=== PATIENT | male | born 1985 | race African-American/Black ===

== ENCOUNTER 2021-05-03 07:10 | Emergency (ER) | payer SELFPAY ==
[~2021-05-03] VITALS: Ht 170.2 cm; Wt 68.0 kg
[2021-05-03 07:25] VITALS: BP 154/81
--- NOTE | 2021-05-03 07:29 | NUR ---
ermd assessing pt in triage at this time
[2021-05-03] MEDS ORDERED: ACETAMINOPHEN 325 MG TAB PO ONE (07:35)
[2021-05-03] MEDS ORDERED: NAPR-1704 PO (08:33)
[2021-05-03] MEDS ORDERED: ACETAMINOPHEN 325 MG TAB ONE (08:41)
--- NOTE | 2021-05-03 08:45 | NUR ---
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 pt states injury happened 2 hours ago. denies cough, sore throat, cp or sob. pt has limited rom on right lower extremity, some swelling at site. skin is warm/intact. pmh: denies nka med: denies
--- NOTE | 2021-05-03 08:49 | NUR ---
PT PLACED IN RIGHT STIRRUP SPLINT, CMS WNL BEFORE AND AFTER
[2021-05-03 08:52] VITALS: BP 150/75
--- NOTE | 2021-05-03 08:54 | NUR ---
Patient discharged with v/s stable. Written and verbal after care instructions given and explained. Patient alert, oriented and verbalized understanding of instructions. Ambulatory with to car. All questions addressed prior to discharge. ID band removed. Patient advised to follow up with PMD. Rx of NAPROXEN given. Patient educated on indication of medication including possible reaction and side effects. Opportunity to ask questions provided and answered.
[2021-05-04] MEDS ORDERED: IBUP-2213 PO (18:03)
== END 2021-05-03 08:54 | disposition home or self-care (01) ==
LOC: MED 07:10
DX: S93.401A Sprain of unspecified ligament of right ankle, initial encounter (principal); X50.0XXA Overexertion from strenuous movement or load, initial encounter; Y93.89 Activity, other specified; Y92.89 Other specified places as the place of occurrence of the external cause; Y99.8 Other external cause status
CPT/HCPCS: 29515; 73610; 73630; 99284

== ENCOUNTER 2021-05-04 16:19 | Emergency (ER) | payer SELFPAY ==
[~2021-05-04] VITALS: Ht 170.2 cm; Wt 67.6 kg
[~2021-05-04 16:19] MED LIST: NAPR-1704 PO
[2021-05-04 16:50] VITALS: BP 159/95
[2021-05-04] MEDS ORDERED: IBUP-2213 PO (18:03)
[2021-05-04 18:17] VITALS: BP 159/95
--- NOTE | 2021-05-04 18:17 | NUR ---
NO NURSING INTERVENTIONS PROVIDED
--- NOTE | 2021-05-04 18:18 | NUR ---
Patient discharged with v/s stable. Written and verbal after care instructions ABOUT ANKLE PAIN given and explained. Patient alert, oriented and verbalized understanding of instructions. Ambulatory with steady gait. All questions addressed prior to discharge. ID band removed. Patient advised to follow up with PMD. Rx of IBUPROFEN 600MG given. Patient educated on indication of medication including possible reaction and side effects. Opportunity to ask questions provided and answered.
== END 2021-05-04 18:18 | disposition home or self-care (01) ==
LOC: MED 16:19
DX: S93.401A Sprain of unspecified ligament of right ankle, initial encounter (principal); X50.0XXA Overexertion from strenuous movement or load, initial encounter; Y93.89 Activity, other specified; Y92.89 Other specified places as the place of occurrence of the external cause; Y99.8 Other external cause status
CPT/HCPCS: 73610; 99283

== ENCOUNTER 2021-05-05 07:45 | Emergency (ER) | payer SELFPAY ==
[~2021-05-05] VITALS: Ht 170.2 cm; Wt 69.9 kg
[~2021-05-05 07:45] MED LIST changes: +IBUP-2213 PO
[2021-05-05 08:04] VITALS: BP 146/90
--- NOTE | 2021-05-05 08:04 | NUR ---
ermd in triage room assessing pt
--- NOTE | 2021-05-05 08:06 | NUR ---
35 y/o male c/o runny nose that he states started 45 minutes ago. not c/o of any other symptoms. denies anyone else sick around him or possible covid exposure. denies n/v/d. denies sob, cough, cp, fever, chills or sore throat. pt states pain is 0/10 at this time. skin is pink/warm/dry. bl lung bases clear, even and unlabored breathing. heart rate is even and normal. denies hematuria, dysuria, constipation. ermd made aware of pt status. pmh: denies nka med: denies
--- NOTE | 2021-05-05 08:07 | NUR ---
novel swabbed at this time
--- NOTE | 2021-05-05 08:35 | NUR ---
Patient discharged with v/s stable. Written and verbal after care instructions ABOUT VIRAL ILLNESS given and explained. Patient verbalized understanding. Ambulatory with steady gait. All questions addressed prior to discharge. Advised to follow up with PMD.
[2021-05-06] MEDS ORDERED: ACET-2619 PO (07:50)
== END 2021-05-05 08:35 | disposition home or self-care (01) ==
LOC: MED 07:45
DX: J34.89 Other specified disorders of nose and nasal sinuses (principal); Z20.822 Contact with and (suspected) exposure to COVID-19; Z79.899 Other long term (current) drug therapy
CPT/HCPCS: 99283; U0003

== ENCOUNTER 2021-05-06 06:55 | Emergency (ER) | payer SELFPAY ==
[~2021-05-06] VITALS: Ht 170.2 cm; Wt 68.7 kg
[2021-05-06 07:40] VITALS: BP 140/76
[2021-05-06] MEDS ORDERED: ACET-2619 PO (07:50)
--- NOTE | 2021-05-06 08:03 | NUR ---
PT SEEN BY DR VITALE, NO NURSING INTERVENTIONS PROVIDED
--- NOTE | 2021-05-06 08:04 | NUR ---
Patient discharged with v/s stable. Written and verbal after care instructions ABOUT UPPER RESPIRATORY INFECTIONS given and explained. Patient alert, oriented and verbalized understanding of instructions. Ambulatory with steady gait. All questions addressed prior to discharge. ID band removed. Patient advised to follow up with PMD. Rx of TYLENOL given. Patient educated on indication of medication including possible reaction and side effects. Opportunity to ask questions provided and answered.
== END 2021-05-06 08:04 | disposition home or self-care (01) ==
LOC: MED 06:55
DX: J02.9 Acute pharyngitis, unspecified (principal); Z20.822 Contact with and (suspected) exposure to COVID-19; Z79.899 Other long term (current) drug therapy
CPT/HCPCS: 99282

== ENCOUNTER 2021-05-07 05:19 | Emergency (ER) | payer SELFPAY ==
[~2021-05-07] VITALS: Ht 172.7 cm; Wt 67.6 kg
[~2021-05-07 05:19] MED LIST changes: +ACET-2619 PO
[2021-05-07 05:35] VITALS: BP 144/77
[2021-05-07] MEDS ORDERED: IBUPROFEN 800 MG TAB PO ONE (05:35)
--- NOTE | 2021-05-07 05:38 | NUR ---
TO LOBBY A/W BED AMBULATORY
--- NOTE | 2021-05-07 05:40 | NUR ---
SEEN AND EXAMINED BY DUNG
[2021-05-07 06:33] VITALS: BP 121/80
--- NOTE | 2021-05-07 06:33 | NUR ---
Patient discharged with v/s stable. Written and verbal after care instructions given and explained. Patient verbalized understanding. Ambulatory with steady gait. All questions addressed prior to discharge. Advised to follow up with PMD.
== END 2021-05-07 06:33 | disposition home or self-care (01) ==
LOC: MED 05:19
DX: M79.631 Pain in right forearm (principal); Z79.899 Other long term (current) drug therapy; W19.XXXA Unspecified fall, initial encounter; Y93.89 Activity, other specified; Y92.89 Other specified places as the place of occurrence of the external cause; Y99.8 Other external cause status
CPT/HCPCS: 73090; 73130; 99284

== ENCOUNTER 2021-05-16 05:04 | Emergency (ER) | payer SELFPAY ==
[~2021-05-16] VITALS: Ht 172.7 cm; Wt 66.2 kg
[2021-05-16 05:18] VITALS: BP 126/79
--- NOTE | 2021-05-16 05:25 | NUR ---
Dr. Hollins examining patient.
--- NOTE | 2021-05-16 05:28 | NUR ---
35 Y/O MALE BIB SELF PRESENTS TO ED WITH HEADACHE X20 MINUTES. PT STATES NO SEIZURE, LOC, OR TRAUMA. DENIES N/V/D; SKIN IS PINK/WARM/DRY; AAOX4 WITH EVEN AND STEADY GAIT; LUNGS CLEAR BL; HR EVEN AND REGULAR; PT DENIES ANY FEVER, CP, SOB, OR COUGH AT THIS TIME; PATIENT STATES PAIN OF 9/10 AT THIS TIME;DENIES SORE THROAT, SENSITIVITY TO LIGH OR BLURRED VISION; VSS. DENIES PMH NKA
[2021-05-16] MEDS ORDERED: diphenhydrAMINE 50 MG/ML VIAL IM ONE (05:30)
[2021-05-16] MEDS ORDERED: KETOROLAC 60 MG/2 ML VIAL IM ONE (05:30)
[2021-05-16] MEDS ORDERED: PROCHLORPERAZINE 10 MG/2 ML VIAL IM ONE (05:30)
[2021-05-16 05:57] VITALS: BP 126/79
--- NOTE | 2021-05-16 05:59 | NUR ---
Patient discharged with v/s stable. Written and verbal after care instructions given and explained. Patient verbalized understanding. Ambulatory with steady gait. All questions addressed prior to discharge. Advised to follow up with PMD. STEADY GAIT, VSS, UNLABORED BREATHING, A/OX4, AND CALM DEMEANOR.
== END 2021-05-16 05:59 | disposition home or self-care (01) ==
LOC: MED 05:04
DX: G43.909 Migraine, unspecified, not intractable, without status migrainosus (principal)
CPT/HCPCS: 96372; 99284; J0780; J1200; J1885

== ENCOUNTER 2021-05-21 20:45 | Emergency (ER) | payer SELFPAY ==
[~2021-05-21] VITALS: Ht 170.2 cm; Wt 65.8 kg
[2021-05-21 20:45] VITALS: BP 167/103
--- NOTE | 2021-05-21 20:45 | NUR ---
KORI CARRENO TAKEN TO CHAIR E
--- NOTE | 2021-05-21 21:07 | NUR ---
PATIENT BIB [employer]. PATIENT EXAMINED BY DR. VITALE. PATIENT MEDICALLY CLEARED AND RELEASED IN CUSTODY IN STABLE CONDITION. ORIGINAL PRE-BOOK FORM GIVEN TO OFFICER SHAN, #429.
== END 2021-05-21 21:07 ==
LOC: MED 20:45
DX: R00.0 Tachycardia, unspecified (principal); Z02.89 Encounter for other administrative examinations
CPT/HCPCS: 99283

== ENCOUNTER 2021-05-30 10:17 | Emergency (ER) | payer SELFPAY ==
[~2021-05-30] VITALS: Ht 172.7 cm; Wt 67.1 kg
[2021-05-30 10:32] VITALS: BP 130/79
--- NOTE | 2021-05-30 10:35 | NUR ---
PT SENT TO LOBBY
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
[2021-05-30] MEDS ORDERED: IBUPROFEN 600 MG TAB PO ONE (11:10)
[2021-05-30] MEDS ORDERED: IBUP-1842 PO (11:32)
[2021-05-30 12:40] VITALS: BP 130/79
--- NOTE | 2021-05-30 12:40 | NUR ---
Patient discharged with v/s stable. Written and verbal after care instructions ABOUT HAND CONTUSION, WRIST FRACTURE given and explained. Patient alert, oriented and verbalized understanding of instructions. Ambulatory with steady gait. All questions addressed prior to discharge. ID band removed. Patient advised to follow up with PMD. Rx of MOTRIN given. Patient educated on indication of medication including possible reaction and side effects. Opportunity to ask questions provided and answered.
== END 2021-05-30 12:40 | disposition home or self-care (01) ==
LOC: MED 10:17
DX: S52.501A Unspecified fracture of the lower end of right radius, initial encounter for closed fracture (principal); Z79.899 Other long term (current) drug therapy; X58.XXXA Exposure to other specified factors, initial encounter; Y93.89 Activity, other specified; Y92.89 Other specified places as the place of occurrence of the external cause; Y99.8 Other external cause status
CPT/HCPCS: 73110; 73130; 99284

== ENCOUNTER 2021-06-14 05:39 | Emergency (ER) | payer SELFPAY ==
[~2021-06-14] VITALS: Ht 172.7 cm; Wt 65.8 kg
[~2021-06-14 05:39] MED LIST changes: +IBUP-1842 PO
[2021-06-14 05:45] VITALS: BP 127/79
--- NOTE | 2021-06-14 05:45 | NUR ---
TO [facility] AMBULATORY
--- NOTE | 2021-06-14 06:05 | NUR ---
SEEN AND EXAMINED BY DUNG
--- NOTE | 2021-06-14 07:10 | NUR ---
RECEIVED REPORT FROM HAYDEE GOFF.
[2021-06-14] MEDS ORDERED: NAPR-1704 PO (07:55)
--- NOTE | 2021-06-14 08:00 | NUR ---
PT PLACED IN RIGHT WRIST VELCRO SPLINT AND RIGHT SLING. CMS WNL BEFORE AND AFTER.
[2021-06-14 08:02] VITALS: BP 117/68
== END 2021-06-14 08:00 | disposition home or self-care (01) ==
LOC: MED 05:39
DX: S52.501A Unspecified fracture of the lower end of right radius, initial encounter for closed fracture (principal); S52.591A Other fractures of lower end of right radius, initial encounter for closed fracture; Y93.89 Activity, other specified; Y92.89 Other specified places as the place of occurrence of the external cause; Y99.8 Other external cause status
CPT/HCPCS: 73110; 73200; 99284

== ENCOUNTER 2021-06-29 19:49 | Emergency (ER) | payer SELFPAY ==
[~2021-06-29] VITALS: Ht 170.2 cm; Wt 64.4 kg
[2021-06-29 20:29] VITALS: BP 121/67
--- NOTE | 2021-06-29 20:35 | NUR ---
TO LOBBY FOLLOWING TRIAGE
[2021-06-29] MEDS ORDERED: FLUORESCEIN OPTH STRIP 1 MG OP ONE (21:15)
[2021-06-29] MEDS ORDERED: TETRACAINE HCL/PF 0.5% OPTH 4 ML BTL OP ONE (21:15)
--- NOTE | 2021-06-29 21:24 | NUR ---
PT TAKEN TO BED 3
--- NOTE | 2021-06-29 21:42 | NUR ---
Dr. Carvalho examining patient.
--- NOTE | 2021-06-29 21:50 | NUR ---
2144 ASSUMED PATIENT CARE, HERE FOR EYE IRRITATION/DRYNESS. EYE DROPS GIVEN BY DR. TRIVEDI.
--- NOTE | 2021-06-29 22:27 | NUR ---
Patient cleared for dc with Dr. Carvalho.
[2021-06-30] MEDS ORDERED: IBUP-1842 PO (19:04)
== END 2021-06-29 22:27 | disposition home or self-care (01) ==
LOC: MED 19:49
DX: H57.11 Ocular pain, right eye (principal); Z79.899 Other long term (current) drug therapy
CPT/HCPCS: 99283

== ENCOUNTER 2021-06-30 17:47 | Emergency (ER) | payer SELFPAY ==
[~2021-06-30] VITALS: Ht 170.2 cm; Wt 63.5 kg
[2021-06-30 18:14] VITALS: BP 106/61
[2021-06-30] MEDS ORDERED: IBUP-1842 PO (19:04)
[2021-06-30 19:15] VITALS: BP 106/61
== END 2021-06-30 19:15 | disposition home or self-care (01) ==
LOC: MED 17:47
DX: S60.221A Contusion of right hand, initial encounter (principal); Z79.899 Other long term (current) drug therapy; X50.0XXA Overexertion from strenuous movement or load, initial encounter; Y93.89 Activity, other specified; Y92.89 Other specified places as the place of occurrence of the external cause; Y99.8 Other external cause status
CPT/HCPCS: 73130; 99283

== ENCOUNTER 2021-08-09 08:09 | Emergency (ER) | payer SELFPAY ==
[~2021-08-09] VITALS: Ht 172.7 cm; Wt 64.0 kg
[2021-08-09 08:24] VITALS: BP 122/66
[2021-08-09] MEDS ORDERED: NAPR-1704 PO (09:23)
[2021-08-09 09:49] VITALS: BP 118/61
== END 2021-08-09 09:49 | disposition home or self-care (01) ==
LOC: MED 08:09
DX: S69.91XA Unspecified injury of right wrist, hand and finger(s), initial encounter (principal); Z79.1 Long term (current) use of non-steroidal anti-inflammatories (NSAID); Z79.899 Other long term (current) drug therapy; W22.8XXA Striking against or struck by other objects, initial encounter; Y92.89 Other specified places as the place of occurrence of the external cause; Y93.89 Activity, other specified; Y99.8 Other external cause status
CPT/HCPCS: 73110; 99283

== ENCOUNTER 2021-09-09 18:10 | Emergency (ER) | payer SELFPAY ==
[~2021-09-09] VITALS: Ht 172.7 cm; Wt 66.7 kg
[2021-09-09 18:22] VITALS: BP 118/73
--- NOTE | 2021-09-09 19:05 | NUR ---
XR AT PT BEDSIDE
--- NOTE | 2021-09-09 19:20 | NUR ---
Pt report given to SHELL KIRKLAND. Transfer of care at this time.
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
[2021-09-09] MEDS ORDERED: NAPR-54 PO (19:24)
--- NOTE | 2021-09-09 19:39 | NUR ---
devika carr at bedside discussing pt results
--- NOTE | 2021-09-09 19:41 | NUR ---
Patient discharged with v/s stable. Written and verbal after care instructions given and explained. Patient alert, oriented and verbalized understanding of instructions. Ambulatory with steady gait. All questions addressed prior to discharge. ID band removed. Patient advised to follow up with PMD. Rx of NAPOXEN given. Patient educated on indication of medication including possible reaction and side effects. Opportunity to ask questions provided and answered. VSS, A/OX4, AMBULATORY, UNLABORED BREATHING, AND CALM DEMEANOR
[2021-09-09 19:42] VITALS: BP 118/73
== END 2021-09-09 19:40 | disposition home or self-care (01) ==
LOC: MED 18:10
DX: M25.512 Pain in left shoulder (principal); Z79.1 Long term (current) use of non-steroidal anti-inflammatories (NSAID); Z79.899 Other long term (current) drug therapy
CPT/HCPCS: 73030; 99283

== ENCOUNTER 2021-09-28 13:26 | Emergency (ER) | payer SELFPAY ==
[~2021-09-28] VITALS: Ht 172.7 cm; Wt 69.9 kg
[~2021-09-28 13:26] MED LIST changes: +NAPR-54 PO
[2021-09-28 13:43] VITALS: BP 127/80
--- NOTE | 2021-09-28 13:45 | NUR ---
PT KOLBY TO EZEKIEL Miranda
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
--- NOTE | 2021-09-28 14:19 | NUR ---
PT WILL WAIT IN ER LOBBY FOR RESULTS
[2021-09-28] MEDS ORDERED: NAPR-54 PO (14:44)
[2021-09-28 14:49] VITALS: BP 117/76
== END 2021-09-28 14:49 | disposition home or self-care (01) ==
LOC: MED 13:26
DX: M25.571 Pain in right ankle and joints of right foot (principal); Z79.1 Long term (current) use of non-steroidal anti-inflammatories (NSAID); Z79.899 Other long term (current) drug therapy
CPT/HCPCS: 73610; 99283

== ENCOUNTER 2021-12-27 17:26 | Emergency (ER) | payer SELFPAY ==
[~2021-12-27] VITALS: Ht 172.7 cm; Wt 65.5 kg
[2021-12-27 17:38] VITALS: BP 139/77
--- NOTE | 2021-12-27 18:05 | NUR ---
PATIENT AMBULATE TO ROOM 3
[2021-12-27] MEDS ORDERED: IBUPROFEN 600 MG TAB PO ONE (18:10)
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
[2021-12-27] MEDS ORDERED: IBUP-2213 PO (18:19)
[2021-12-27] MEDS ORDERED: AMOX500C25 PO (18:19)
[2021-12-27] MEDS ORDERED: BENZ20GE11 MM (18:19)
[2021-12-27 18:29] VITALS: BP 139/77
--- NOTE | 2021-12-27 18:29 | NUR ---
Patient discharged with v/s stable. Written and verbal after care instructions given and explained. Patient alert, oriented and verbalized understanding of instructions. Ambulatory with steady gait. All questions addressed prior to discharge. ID band removed. Patient advised to follow up with PMD. Rx of AMOXICILLIN BENZOCAINE IBUPROFEN given.
--- NOTE | 2021-12-27 18:30 | NUR ---
The patient's care was reviewed and supervised by Loretta Soares RN.
== END 2021-12-27 18:29 | disposition home or self-care (01) ==
LOC: MED 17:26
DX: K02.9 Dental caries, unspecified (principal); Z79.899 Other long term (current) drug therapy; Z79.2 Long term (current) use of antibiotics; Z79.1 Long term (current) use of non-steroidal anti-inflammatories (NSAID)
CPT/HCPCS: 99283